=== PATIENT | male | born 2000 | race African-American/Black ===

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

== ENCOUNTER 2019-03-10 14:29 | Emergency (ER) | payer OTHER ==
[~2019-03-10] VITALS: Ht 180.3 cm; Wt 65.3 kg
[2019-03-10 14:33] VITALS: BP 140/86; Ht 180.3 cm; Wt 65.3 kg
== END 2019-03-10 16:28 | disposition home or self-care (01) ==
LOC: ED 14:29
DX: G43.909 Migraine, unspecified, not intractable, without status migrainosus (principal)
CPT/HCPCS: J0780; J1885